=== PATIENT | female | born 1985 | race African-American/Black ===

== ENCOUNTER 2022-12-20 19:48 | Inpatient (IN) | payer MEDICARE, OTHER ==
[~2022-12-20] VITALS: Ht 162.6 cm; Wt 76.0 kg
[2022-12-20 20:00] VITALS: BP 114/81; PULSE 116; RESP 20; TEMP 97.3
[2022-12-21] MEDS ORDERED: CLONIDINE 0.1MG TABLET PO PRN (01:15)
[2022-12-21] MEDS ORDERED: ONDANSETRON HCL 4MG/2ML INJ IV PRN (01:15)
[2022-12-21 07:19] LABS: HEMATOCRIT. 24.3 % (36.0-48.0); HEMOGLOBIN. 7.8 g/dL (12.0-16.0); MEAN CORPUSCULAR HEMOGLOBIN 31.2 pg (28.0-32.0); MEAN CORPUSCULAR HGB CONC 32.3 g/dL (31.0-37.0); MEAN CORPUSCULAR VOLUME 96.9 fL (81.0-99.0); MEAN PLATELET VOLUME 7.1 fl (7.4-10.4); PLATELET 446 x1000/uL (130-400); RED CELL DISTRIBUTION WIDTH 13.9 % (11.6-14.6); WHITE BLOOD COUNT 12.1 x1000/uL (4.5-11.0)
[2022-12-21 07:23] LABS: DIFFERENTIAL COMMENT 1
[2022-12-21 07:30] LABS: CHLORIDE 106 mEq/L (98-107); INDEX HEMOLYSI 1 (1-3); INDEX ICTERIC 1 (1-4); INDEX LIPEMIC 1 (1-3); SODIUM 137 mEq/L (136-145)
[2022-12-21 07:41] LABS: ALANINE AMINOTRANSFERASE 27 IU/L (13-61); ALBUMIN 2.5 g/dL (3.4-5.0); ASPARTATE AMINOTRANSFERASE 18 IU/L (15-37); BILIRUBIN TOTAL 0.8 mg/dL (0.1-1.0); CALCIUM 8.3 mg/dL (8.5-10.1); CARBON DIOXIDE 26 mEq/L (21-32); CREATININE 0.4 mg/dL (0.6-1.3); GLUCOSE 101 mg/dL (70-105); PROTEIN TOTAL 7.2 g/dL (6.0-8.3); UREA NITROGEN BLOOD 16 mg/dL (7-21)
[2022-12-21 07:58] LABS: PREALBUMIN 16.6 mg/dL (20.0-40.0)
[2022-12-21 08:00] VITALS: BP 109/70; PULSE 109; RESP 18; TEMP 98.1
[2022-12-21] MEDS ORDERED: GUAIFENESIN 200MG/10ML SUGAR FREE UDC PO PRN (08:00)
[2022-12-21] MEDS: IRON SUCROSE COMPLEX 200 MG in SODIUM CHLORIDE 0.9% 100 ML IV SCH (09:00)
[2022-12-21] MEDS ORDERED: ENOXAPARIN 40MG/0.4ML SYR SUBCUT SCH (09:00)
[2022-12-21] MEDS ORDERED: QUETIAPINE FUMARATE 50MG TABLET PO SCH (09:00)
[2022-12-21] MEDS: FERROUS SULFATE 325MG TABLET PO SCH ×3 (09:11→17:15)
[2022-12-21] MEDS: QUETIAPINE FUMARATE 50MG TABLET PO SCH ×2 (09:11→21:48)
[2022-12-21] MEDS: ASCORBIC ACID 500 MG TABLET PO SCH (09:11)
[2022-12-21] MEDS: DOCUSATE SODIUM 100MG CAPSULE PO SCH ×2 (09:11→17:15)
[2022-12-21] MEDS ORDERED: IRON SUCROSE COMPLEX 100 MG/5 ML ML IV SCH (10:00)
[2022-12-21] MEDS: CYANOCOBALAMIN 1000MCG/ML VIAL IM SCH (12:40)
[2022-12-21] MEDS: NICOTINE 14MG PATCH TD SCH (12:40)
[2022-12-21] MEDS: ACETAMINOPHEN 325MG TABLET PO PRN ×2 (17:15→21:48)
[2022-12-21 20:00] VITALS: BP 119/80; PULSE 112; RESP 20; TEMP 97.4
[2022-12-21] MEDS: FAMOTIDINE 20MG TABLET PO SCH (21:48)
[2022-12-22 07:10] LABS: ANISOCYTOSIS 1+; PLATELET ESTIMATE INCREASED
[2022-12-22 08:00] VITALS: BP 117/77; PULSE 109; RESP 18; TEMP 98.1
[2022-12-22 08:10] LABS: HEMATOCRIT. 25.5 % (36.0-48.0); HEMOGLOBIN. 8.5 g/dL (12.0-16.0); MEAN CORPUSCULAR HEMOGLOBIN 32.4 pg (28.0-32.0); MEAN CORPUSCULAR HGB CONC 33.3 g/dL (31.0-37.0); MEAN CORPUSCULAR VOLUME 97.3 fL (81.0-99.0); MEAN PLATELET VOLUME 7.2 fl (7.4-10.4); PLATELET 556 x1000/uL (130-400); RED BLOOD CELL COUNT 2.63 mill/uL (4.2-5.4); RED CELL DISTRIBUTION WIDTH 13.9 % (11.6-14.6)
[2022-12-22 08:13] LABS: DIFFERENTIAL COMMENT 1
[2022-12-22] MEDS: CYANOCOBALAMIN 1000MCG/ML VIAL IM SCH (08:23)
[2022-12-22] MEDS: IRON SUCROSE COMPLEX 200 MG in SODIUM CHLORIDE 0.9% 100 ML IV SCH (08:23)
[2022-12-22] MEDS: QUETIAPINE FUMARATE 50MG TABLET PO SCH ×2 (08:24→22:43)
[2022-12-22] MEDS: DOCUSATE SODIUM 100MG CAPSULE PO SCH ×2 (08:24→17:03)
[2022-12-22] MEDS: ASCORBIC ACID 500 MG TABLET PO SCH (08:24)
[2022-12-22] MEDS: ACETAMINOPHEN 325MG TABLET PO PRN ×3 (08:24→22:43)
[2022-12-22] MEDS: FERROUS SULFATE 325MG TABLET PO SCH ×3 (08:24→17:03)
[2022-12-22] MEDS: NICOTINE 14MG PATCH TD SCH (08:27)
[2022-12-22 08:28] LABS: CHLORIDE 106 mEq/L (98-107); INDEX HEMOLYSI 1 (1-3); INDEX ICTERIC 1 (1-4); INDEX LIPEMIC 1 (1-3); POTASSIUM 4.1 mEq/L (3.5-5.1); SODIUM 138 mEq/L (136-145)
[2022-12-22 08:42] LABS: CALCIUM 8.7 mg/dL (8.5-10.1); CARBON DIOXIDE 29 mEq/L (21-32); CREATININE 0.5 mg/dL (0.6-1.3); GLUCOSE 101 mg/dL (70-105); UREA NITROGEN BLOOD 16 mg/dL (7-21)
[2022-12-22 20:00] VITALS: BP 117/76; PULSE 116; RESP 18; TEMP 98.5
[2022-12-22] MEDS: FAMOTIDINE 20MG TABLET PO SCH (22:43)
[2022-12-23 04:10] LABS: PLATELET ESTIMATE INCREASED
[2022-12-23 08:00] VITALS: BP 113/76; PULSE 117; RESP 18; TEMP 98.4
[2022-12-23] MEDS: CYANOCOBALAMIN 1000MCG/ML VIAL IM SCH (08:29)
[2022-12-23] MEDS: NICOTINE 14MG PATCH TD SCH (08:31)
[2022-12-23] MEDS: DOCUSATE SODIUM 100MG CAPSULE PO SCH ×2 (08:31→16:27)
[2022-12-23] MEDS: ASCORBIC ACID 500 MG TABLET PO SCH (08:31)
[2022-12-23] MEDS: FERROUS SULFATE 325MG TABLET PO SCH ×4 (08:31→16:26)
[2022-12-23] MEDS: QUETIAPINE FUMARATE 50MG TABLET PO SCH ×2 (08:31→21:34)
[2022-12-23] MEDS: ACETAMINOPHEN 325MG TABLET PO PRN (16:29)
[2022-12-23 20:00] VITALS: BP 106/68; PULSE 104; RESP 18; TEMP 98.4
[2022-12-23] MEDS: FAMOTIDINE 20MG TABLET PO SCH (21:33)
[2022-12-24] MEDS: ACETAMINOPHEN 325MG TABLET PO PRN ×3 (01:18→22:48)
[2022-12-24 08:00] VITALS: BP 118/80; PULSE 103; RESP 18; TEMP 98.1
[2022-12-24] MEDS: CYANOCOBALAMIN 1000MCG/ML VIAL IM SCH (08:45)
[2022-12-24] MEDS: ASCORBIC ACID 500 MG TABLET PO SCH (08:46)
[2022-12-24] MEDS: DOCUSATE SODIUM 100MG CAPSULE PO SCH ×2 (08:46→17:33)
[2022-12-24] MEDS: QUETIAPINE FUMARATE 50MG TABLET PO SCH ×2 (08:46→22:45)
[2022-12-24] MEDS: FERROUS SULFATE 325MG TABLET PO SCH ×3 (08:46→17:33)
[2022-12-24] MEDS: NICOTINE 14MG PATCH TD SCH (09:03)
[2022-12-24] MEDS: ENOXAPARIN 40MG/0.4ML SYR SUBCUT SCH (11:02)
[2022-12-24 20:00] VITALS: BP 140/77; PULSE 86; RESP 20; TEMP 97.2
[2022-12-24] MEDS: FAMOTIDINE 20MG TABLET PO SCH (22:44)
[2022-12-25 07:04] LABS: BASOPHILS % 0.2 % (0.0-2.0); DIFFERENTIAL COMMENT 0; EOSINOPHILS % 1.3 % (0.0-5.0); HEMOGLOBIN. 9.3 g/dL (12.0-16.0); LYMPHOCYTES % 21.5 % (20.0-50.0); MEAN CORPUSCULAR HEMOGLOBIN 32.2 pg (28.0-32.0); MEAN CORPUSCULAR HGB CONC 33.4 g/dL (31.0-37.0); MEAN CORPUSCULAR VOLUME 96.4 fL (81.0-99.0); MEAN PLATELET VOLUME 6.6 fl (7.4-10.4); MONOCYTES % 14.3 % (2.0-8.0); NEUTROPHILS % 62.7 % (40.0-76.0); PLATELET 909 x1000/uL (130-400); RED CELL DISTRIBUTION WIDTH 14.3 % (11.6-14.6); WHITE BLOOD COUNT 10.4 x1000/uL (4.5-11.0)
[2022-12-25 08:00] VITALS: BP 125/78; PULSE 85; RESP 18; TEMP 98.3
[2022-12-25] MEDS: ASCORBIC ACID 500 MG TABLET PO SCH (08:02)
[2022-12-25] MEDS: QUETIAPINE FUMARATE 50MG TABLET PO SCH ×2 (08:02→20:58)
[2022-12-25] MEDS: FERROUS SULFATE 325MG TABLET PO SCH ×3 (08:02→17:15)
[2022-12-25] MEDS: DOCUSATE SODIUM 100MG CAPSULE PO SCH ×2 (08:02→17:15)
[2022-12-25 08:06] LABS: CHLORIDE 105 mEq/L (98-107); INDEX HEMOLYSI 1 (1-3); INDEX ICTERIC 1 (1-4); INDEX LIPEMIC 1 (1-3); POTASSIUM 4.3 mEq/L (3.5-5.1); SODIUM 135 mEq/L (136-145)
[2022-12-25 08:13] LABS: CALCIUM 8.9 mg/dL (8.5-10.1); CARBON DIOXIDE 28 mEq/L (21-32); CREATININE 0.5 mg/dL (0.6-1.3); GLUCOSE 82 mg/dL (70-105); PHOSPHORUS 3.6 mg/dL (2.5-4.9); UREA NITROGEN BLOOD 15 mg/dL (7-21)
[2022-12-25] MEDS: ENOXAPARIN 40MG/0.4ML SYR SUBCUT SCH (08:39)
[2022-12-25] MEDS: NICOTINE 14MG PATCH TD SCH (08:39)
[2022-12-25] MEDS: CYANOCOBALAMIN 1000MCG/ML VIAL IM SCH (08:39)
[2022-12-25] MEDS ORDERED: QUETIAPINE FUMARATE 50MG TABLET PO SCH (09:00)
[2022-12-25] MEDS: ACETAMINOPHEN 325MG TABLET PO PRN (15:18)
[2022-12-25 20:00] VITALS: BP 107/78; PULSE 111; RESP 18; TEMP 100
[2022-12-25] MEDS: FAMOTIDINE 20MG TABLET PO SCH (20:58)
[2022-12-25] MEDS: QUETIAPINE FUMARATE 200MG TABLET PO SCH (20:58)
[2022-12-26 08:00] VITALS: BP 126/82; PULSE 93; RESP 20; TEMP 97.9
[2022-12-26] MEDS: ENOXAPARIN 40MG/0.4ML SYR SUBCUT SCH (08:57)
[2022-12-26] MEDS: ASCORBIC ACID 500 MG TABLET PO SCH (08:58)
[2022-12-26] MEDS: NICOTINE 14MG PATCH TD SCH (08:58)
[2022-12-26] MEDS: QUETIAPINE FUMARATE 200MG TABLET PO SCH ×2 (08:58→20:57)
[2022-12-26] MEDS: QUETIAPINE FUMARATE 50MG TABLET PO SCH ×2 (08:58→20:57)
[2022-12-26] MEDS: DOCUSATE SODIUM 100MG CAPSULE PO SCH ×2 (08:58→16:38)
[2022-12-26] MEDS: FERROUS SULFATE 325MG TABLET PO SCH ×3 (08:58→16:38)
[2022-12-26 20:00] VITALS: BP 112/76; PULSE 101; RESP 16; TEMP 97.1
[2022-12-26] MEDS: FAMOTIDINE 20MG TABLET PO SCH (20:57)
[2022-12-26] MEDS: ACETAMINOPHEN 325MG TABLET PO PRN (22:44)
[2022-12-27 08:00] VITALS: BP 111/80; PULSE 105; RESP 18; TEMP 96.4
[2022-12-27] MEDS: ENOXAPARIN 40MG/0.4ML SYR SUBCUT SCH ×3 (08:29→09:00)
[2022-12-27] MEDS: ASCORBIC ACID 500 MG TABLET PO SCH (08:29)
[2022-12-27] MEDS: QUETIAPINE FUMARATE 200MG TABLET PO SCH ×2 (08:29→20:10)
[2022-12-27] MEDS: FERROUS SULFATE 325MG TABLET PO SCH ×3 (08:29→16:51)
[2022-12-27] MEDS: DOCUSATE SODIUM 100MG CAPSULE PO SCH ×2 (08:29→16:51)
[2022-12-27] MEDS: NICOTINE 14MG PATCH TD SCH (08:30)
[2022-12-27] MEDS: ACETAMINOPHEN 325MG TABLET PO PRN ×2 (08:30→18:27)
[2022-12-27] MEDS: QUETIAPINE FUMARATE 50MG TABLET PO SCH ×2 (08:30→20:12)
[2022-12-27 20:00] VITALS: BP 111/62; PULSE 119; RESP 18; TEMP 98.6
[2022-12-27] MEDS: FAMOTIDINE 20MG TABLET PO SCH (20:10)
[2022-12-28] MEDS: ACETAMINOPHEN 325MG TABLET PO PRN ×3 (03:43→21:11)
[2022-12-28 08:00] VITALS: BP 129/81; PULSE 108; RESP 20; TEMP 98.2
[2022-12-28] MEDS: DOCUSATE SODIUM 100MG CAPSULE PO SCH ×2 (09:00→17:57)
[2022-12-28] MEDS: FERROUS SULFATE 325MG TABLET PO SCH ×3 (11:12→17:57)
[2022-12-28] MEDS: QUETIAPINE FUMARATE 200MG TABLET PO SCH ×2 (11:13→21:09)
[2022-12-28] MEDS: ASCORBIC ACID 500 MG TABLET PO SCH (11:13)
[2022-12-28] MEDS: QUETIAPINE FUMARATE 50MG TABLET PO SCH ×2 (11:14→21:09)
[2022-12-28] MEDS: ENOXAPARIN 40MG/0.4ML SYR SUBCUT SCH (11:19)
[2022-12-28] MEDS: NICOTINE 14MG PATCH TD SCH (12:27)
[2022-12-28 20:00] VITALS: BP 113/75; PULSE 118; RESP 18; TEMP 97.2
[2022-12-28] MEDS: FAMOTIDINE 20MG TABLET PO SCH (21:10)
[2022-12-29] MEDS ORDERED: HYDROCODONE/ACETAMINOPHEN 5/325MG TABLET PO PRN (06:30)
[2022-12-29] MEDS ORDERED: NALOXONE HCL 0.4MG/ML VIAL IV PRN (06:45)
[2022-12-29 08:17] LABS: CHLORIDE 103 mEq/L (98-107); INDEX HEMOLYSI 1 (1-3); INDEX ICTERIC 1 (1-4); INDEX LIPEMIC 1 (1-3); POTASSIUM 4.2 mEq/L (3.5-5.1); SODIUM 136 mEq/L (136-145)
[2022-12-29 08:26] LABS: CALCIUM 9.3 mg/dL (8.5-10.1); CARBON DIOXIDE 30 mEq/L (21-32); CREATININE 0.5 mg/dL (0.6-1.3); GLUCOSE 81 mg/dL (70-105); UREA NITROGEN BLOOD 11 mg/dL (7-21)
[2022-12-29 08:28] LABS: BASOPHILS % 0.7 % (0.0-2.0); DIFFERENTIAL COMMENT 0; EOSINOPHILS % 1.7 % (0.0-5.0); HEMATOCRIT. 27.3 % (36.0-48.0); HEMOGLOBIN. 9.1 g/dL (12.0-16.0); LYMPHOCYTES % 17.1 % (20.0-50.0); MEAN CORPUSCULAR HEMOGLOBIN 31.8 pg (28.0-32.0); MEAN CORPUSCULAR HGB CONC 33.2 g/dL (31.0-37.0); MEAN CORPUSCULAR VOLUME 96.1 fL (81.0-99.0); MEAN PLATELET VOLUME 6.9 fl (7.4-10.4); MONOCYTES % 13.3 % (2.0-8.0); NEUTROPHILS % 67.2 % (40.0-76.0); PLATELET 998 x1000/uL (130-400); RED BLOOD CELL COUNT 2.84 mill/uL (4.2-5.4); RED CELL DISTRIBUTION WIDTH 14.7 % (11.6-14.6); WHITE BLOOD COUNT 9.3 x1000/uL (4.5-11.0)
[2022-12-29] MEDS: QUETIAPINE FUMARATE 50MG TABLET PO SCH ×2 (08:47→20:42)
[2022-12-29] MEDS: ASCORBIC ACID 500 MG TABLET PO SCH (08:47)
[2022-12-29] MEDS: FERROUS SULFATE 325MG TABLET PO SCH ×3 (08:47→17:00)
[2022-12-29] MEDS: DOCUSATE SODIUM 100MG CAPSULE PO SCH ×2 (08:47→17:00)
[2022-12-29] MEDS: NICOTINE 14MG PATCH TD SCH (08:48)
[2022-12-29] MEDS: ENOXAPARIN 40MG/0.4ML SYR SUBCUT SCH ×2 (08:48→08:57)
[2022-12-29] MEDS: QUETIAPINE FUMARATE 200MG TABLET PO SCH ×2 (09:00→21:00)
[2022-12-29 09:43] VITALS: BP 95/53; PULSE 109; RESP 20; TEMP 98
[2022-12-29] MEDS ORDERED: ONDANSETRON 4MG ODT PO PRN (16:35)
[2022-12-29 20:00] VITALS: BP 98/63; PULSE 87; RESP 17; TEMP 98.4
[2022-12-29] MEDS: FAMOTIDINE 20MG TABLET PO SCH (21:00)
[2022-12-30] MEDS: ACETAMINOPHEN 325MG TABLET PO PRN ×2 (06:35→21:19)
[2022-12-30 08:00] VITALS: BP 107/78; PULSE 93; RESP 20; TEMP 98.2
[2022-12-30] MEDS: ASCORBIC ACID 500 MG TABLET PO SCH (08:33)
[2022-12-30] MEDS: QUETIAPINE FUMARATE 200MG TABLET PO SCH ×2 (08:33→21:14)
[2022-12-30] MEDS: QUETIAPINE FUMARATE 50MG TABLET PO SCH ×2 (08:33→21:13)
[2022-12-30] MEDS: FERROUS SULFATE 325MG TABLET PO SCH ×3 (08:33→17:10)
[2022-12-30] MEDS: NICOTINE 14MG PATCH TD SCH (08:33)
[2022-12-30] MEDS: DOCUSATE SODIUM 100MG CAPSULE PO SCH ×2 (08:33→17:10)
[2022-12-30] MEDS: ENOXAPARIN 40MG/0.4ML SYR SUBCUT SCH (08:34)
[2022-12-30] MEDS ORDERED: ONDANSETRON 4MG ODT PO PRN (12:03)
[2022-12-30 18:39] LABS: UCG SCREEN NEGATIVE
[2022-12-30 20:00] VITALS: BP 107/72; PULSE 105; RESP 17; TEMP 97.7
[2022-12-30] MEDS: FAMOTIDINE 20MG TABLET PO SCH (21:14)
[2022-12-31] MEDS: DOCUSATE SODIUM 100MG CAPSULE PO SCH ×2 (07:37→15:45)
[2022-12-31] MEDS: QUETIAPINE FUMARATE 200MG TABLET PO SCH ×2 (07:38→20:53)
[2022-12-31] MEDS: QUETIAPINE FUMARATE 50MG TABLET PO SCH ×2 (07:38→20:53)
[2022-12-31] MEDS: FERROUS SULFATE 325MG TABLET PO SCH ×3 (07:38→17:00)
[2022-12-31] MEDS: ASCORBIC ACID 500 MG TABLET PO SCH (07:39)
[2022-12-31] MEDS: NICOTINE 14MG PATCH TD SCH (07:39)
[2022-12-31] MEDS: ENOXAPARIN 40MG/0.4ML SYR SUBCUT SCH (07:45)
[2022-12-31 08:00] VITALS: BP 102/60; PULSE 106; RESP 18; TEMP 97.2
[2022-12-31 20:00] VITALS: BP 104/64; PULSE 94; RESP 17; TEMP 98.1
[2022-12-31] MEDS: FAMOTIDINE 20MG TABLET PO SCH (20:53)
[2023-01-01 08:00] VITALS: BP 110/80; PULSE 87; RESP 18; TEMP 98
[2023-01-01] MEDS: FERROUS SULFATE 325MG TABLET PO SCH (09:00)
[2023-01-01] MEDS: QUETIAPINE FUMARATE 200MG TABLET PO SCH (09:00)
[2023-01-01] MEDS: NICOTINE 14MG PATCH TD SCH (09:00)
[2023-01-01] MEDS: QUETIAPINE FUMARATE 50MG TABLET PO SCH (09:00)
[2023-01-01] MEDS: ASCORBIC ACID 500 MG TABLET PO SCH (09:00)
[2023-01-01] MEDS: ENOXAPARIN 40MG/0.4ML SYR SUBCUT SCH (09:00)
[2023-01-01] MEDS: DOCUSATE SODIUM 100MG CAPSULE PO SCH (09:00)
[2023-01-01] MEDS: CYANOCOBALAMIN 1000MCG/ML VIAL IM SCH (09:00)
[2023-01-01 10:33] VITALS: BP 108/72; PULSE 81; TEMP 98; O2SAT 98
[2023-01-01] MEDS ORDERED: ASCO500T20 PO (11:21)
[2023-01-01] MEDS ORDERED: FERR-63 PO (11:21)
[2023-01-01] MEDS ORDERED: FAMO20TA8 PO (11:21)
== END 2023-01-01 11:52 | DRG 533 ==
LOC: 4WST 19:48
PROVIDERS: ADMIT Physical Medicine & Rehabilitation Spinal Cord Injury Medicine; ATTEND Internal Medicine
DX: S72.352A Displaced comminuted fracture of shaft of left femur, initial encounter for closed fracture (principal); G93.41 Metabolic encephalopathy; F20.0 Paranoid schizophrenia; E53.8 Deficiency of other specified B group vitamins; E61.1 Iron deficiency; J44.9 Chronic obstructive pulmonary disease, unspecified; R26.9 Unspecified abnormalities of gait and mobility; D72.829 Elevated white blood cell count, unspecified; D63.8 Anemia in other chronic diseases classified elsewhere; Z20.822 Contact with and (suspected) exposure to COVID-19; E55.9 Vitamin D deficiency, unspecified; D75.839 Thrombocytosis, unspecified; R79.89 Other specified abnormal findings of blood chemistry; F20.9 Schizophrenia, unspecified; F10.10 Alcohol abuse, uncomplicated; F17.200 Nicotine dependence, unspecified, uncomplicated; Z59.00 Homelessness unspecified; Z91.81 History of falling; W18.30XA Fall on same level, unspecified, initial encounter; Y93.89 Activity, other specified; Y92.89 Other specified places as the place of occurrence of the external cause; Y99.8 Other external cause status; R53.81 Other malaise
CPT/HCPCS: 36415; 73552; 80048; 80053; 81025; 82306; 83735; 84100; 84134; 85025; 85379; 87426; 92523; 93005; 93970; 97110; 97116; 97150; 97162; 97166; 97530; 97535; 97542; J1650; J3420; J7030